=== PATIENT | female | born 1980 | race Two or more races ===

== ENCOUNTER 2019-03-23 18:23 | Emergency (ER) | payer OTHER ==
[~2019-03-23] VITALS: Ht 154.9 cm; Wt 78.3 kg
[~2019-03-23 18:23] MED LIST: NAPR-985 PO; ONDA4TAB14 PO
[2019-03-23 18:32] VITALS: Ht 154.9 cm; Wt 78.3 kg
[2019-03-23] MEDS ORDERED: KETOROLAC 30 MG INJ IV STA (19:23)
[2019-03-23] MEDS ORDERED: ONDANSETRON 4 MG INJ IV STA (19:23)
[2019-03-23] MEDS ORDERED: SOD CHLORIDE 0.9% 1,000 ML IV ONE (19:30)
[2019-03-23 22:12] VITALS: BP 118/72; PULSE 83; RESP 18
== END 2019-03-23 22:13 | disposition home or self-care (01) ==
LOC: FTE 18:23
DX: D25.9 Leiomyoma of uterus, unspecified (principal); R10.2 Pelvic and perineal pain
CPT/HCPCS: 36415; 74176; 76830; 76856; 80053; 81001; 81025; 84703; 85025; 96374; 96375; J1885; J2405; J7030; Z7502